=== PATIENT | male | born 1970 | race Hispanic/Latino ===

== ENCOUNTER → 2017-12-02 | Outpatient (CLI) | payer OTHER ==
[~2017-12-02] MED LIST: ZESTRIL20 MG PO
--- NOTE | 2017-12-02 13:44 | Diagnostic Imaging Report ---
PROCEDURE:X-RAY ABDOMEN - KUB COMPARISON:KUB 07/22/2017 INDICATIONS:CALCULUS OF KIDNEY FINDINGS: There is a non-obstructed bowel-gas pattern. There are no calcifications projected over the renal shadows, expected course of the ureters or bladder. Stable phleboliths in the pelvis. There are no acute osseous abnormalities. CONCLUSION: No radiographically apparent nephrolithiasis. Dictated by: Jeremy Carter M.D. on 12/02/2017 at 13:45 Electronically approved by: Jeremy Carter M.D. on 12/02/2017 at 13:45
== END ==
LOC: RAD 09:48
PROVIDERS: ATTEND Urology
DX: N20.0 Calculus of kidney (principal)
CPT/HCPCS: 74018

== ENCOUNTER → 2018-04-15 | Outpatient (CLI) | payer OTHER ==
--- NOTE | 2018-04-15 13:44 | Diagnostic Imaging Report ---
Exam: Abdominal film Clinical History: Calculus of kidney, check kidney stones Comparison: KUB 12/02/2017 DISCUSSION: Frontal view of the abdomen shows a nonobstructive bowel gas pattern with mild amount of retained stool.There are no dilated, air-filled loops of bowel. No radiopaque densities project over the renal shadows, expected course of the ureters or bladder.No acute bone abnormality. IMPRESSION: 1. No evidence of nephro or ureterolithiasis The staff physician below has personally reviewed this exam on the date of dictation. Signed by: Dr. Matty eL M.D. on 04/15/2018 1:41 PM
== END ==
LOC: RAD 12:00
PROVIDERS: ATTEND Urology
DX: N20.0 Calculus of kidney (principal)
CPT/HCPCS: 74018

== ENCOUNTER → 2018-11-05 | Outpatient (CLI) | payer OTHER ==
--- NOTE | 2018-11-05 10:40 | Diagnostic Imaging Report ---
EXAM: ABDOMEN-1VIEW (KUB) DATE: 11/05/2018 10:01 AM INDICATION: Kidney stone COMPARISON: KUB, 04/15/2018 FINDINGS: 2 supine views of the abdomen show a normal distribution of air in the small and large bowel. No calcification is identified projected on the area of either kidney, along the expected course of either ureter or at the level of the bladder. In some areas, a small calcification might be obscured by overlying bowel or bone. There are stable small calcifications in the right hemipelvis compatible with phleboliths. No acute bony abnormality. Degenerative changes are seen in the thoracolumbar junction. IMPRESSION: 1. No bowel dilatation or evidence for bowel obstruction. 2. No urinary tract calcification is identified. Signed by: Dr. Dani Davis M.D. on 11/05/2018 10:37 AM
== END ==
LOC: RAD 09:50
PROVIDERS: ATTEND Urology
DX: N20.0 Calculus of kidney (principal)
CPT/HCPCS: 74018

== ENCOUNTER → 2019-05-23 | Outpatient (CLI) | payer OTHER ==
--- NOTE | 2019-05-23 13:52 | Diagnostic Imaging Report ---
Exam: KUB - 2 views Indication: Renal calculi Comparison: Multiple prior KUBs, most recently of 11/05/2018 Findings: No radiographically apparent renal calculi. Nonobstructive bowel gas pattern. The osseous structures appear unremarkable. No free air. Phleboliths in the pelvis. Impression: No radiographically apparent renal calculi. Signed by: Gui Ramirez MD on 05/23/2019 1:48 PM
== END ==
LOC: RAD 12:41
PROVIDERS: ATTEND Urology
DX: N20.1 Calculus of ureter (principal)
CPT/HCPCS: 74018

== ENCOUNTER → 2020-06-27 | Outpatient (CLI) | payer BC ==
--- NOTE | 2020-06-27 13:04 | Diagnostic Imaging Report ---
Exam: KUB - 2 views Indication: Renal calculus Comparison: KUB of 05/23/2019 Findings: No radiographically apparent urinary calculi. Nonobstructive bowel gas pattern. No free air. Subcentimeter phleboliths in the pelvis. No acute osseous injury. Impression: No radiographically apparent urinary calculi. Signed by: Gui Ramirez MD on 06/27/2020 1:01 PM
== END ==
LOC: RAD 11:39
PROVIDERS: ATTEND Urology
DX: N20.0 Calculus of kidney (principal)
CPT/HCPCS: 74018

== ENCOUNTER → 2022-03-13 | Outpatient (CLI) | payer BC | LOC: RAD 10:10 | PROVIDERS: ATTEND Urology | DX: N20.0 Calculus of kidney (principal) | CPT/HCPCS: 74018 ==

== ENCOUNTER → 2024-11-09 | Outpatient (REF) | payer BC | LOC: RAD 09:36 | PROVIDERS: ATTEND Urology | DX: N20.0 Calculus of kidney (principal); Z87.442 Personal history of urinary calculi | CPT/HCPCS: 74018 ==